=== PATIENT | female | born 1975 | race Caucasian/White ===

== ENCOUNTER 2016-08-10 04:01 | Emergency (ER) | payer BC, OTHER ==
--- NOTE | 2016-08-10 05:45 | DIAGNOSTIC IMAGING REPORT ---
PROCEDURE: XR CHEST 2 VIEW INDICATION: COUGH TECHNIQUE: PA and lateral views. COMPARISON: None. FINDINGS: Lungs are clear. Heart and mediastinum are normal. Thorax is normal. IMPRESSION: 1. Negative chest.
--- NOTE | 2016-08-10 07:35 | ED NURSING NOTES ---
Clinical Report - Nurses [facility] [address] [place] [address] 08/10/2016 4:07 Patient: CAMILA PAINTING TRIAGE 04:21 08/10/16. BP: 123/77. HR: 101. RR: 20. O2 saturation: 97% on room air. Temp: 99.6 F (oral). Pain level now: 04/05. --04:24 McQuoid, Marcella, ER Tech1 Triage time 04:Aug 10 2016. Acuity: LEVEL 3. Chief Complaint: COUGH, SORE THROAT and BODY ACHES. SEPSIS SCREEN: Sepsis Screen: negative. Negative (no infection suspected/documented). CARMEN COMA SCORE: Carmen Coma Scale: 15- eyes open spontaneously (4); best verbal response- oriented x 4 (5); best motor response- obeys commands (6). --04:31 Sheila Farmer 04:27 08/10/16. BP: 120/70. HR: 96. RR: 20. O2 saturation: 98% on room air. --04:31 Sheila Farmer. Weight: 72.5 kg stated. Height/Length: 63 inches Per Patient. BMI: 28.3. --04:21 McQuoid, Marcella, ER Tech1. Medications Albuterol Sulfate HFA Inhalation. Omeprazole Oral. Qvar Inhalation. Singulair Oral. --04:23 McQudariela Marcella, ER Tech1. Medication/allergy information source: the patient. --04:31 Sheila Farmer. Allergies Aspirin. Ibuprofen. Penicillin. Sulfa Antibiotics. --04:23 McQuoid Marcella, ER Tech1. History Arrived by private vehicle. Historian: patient. Unaccompanied. Primary physician (celeste). ( Patient reports that she has been sick for one week with scratchy throat and cough. She reports that she began having body aches, chills and headache since earlier tonight. She reports that her co-worker has a child who was recently diagnosed with meningitis and she was concerned for exposure.). PAST MEDICAL HX: Immunizations: up-to-date. Last normal menstrual period- 3 weeks ago. SOCIAL HX: Former smoker, end date 2006. Regular alcohol use. No drug use. No recent travel. She has had contact with a sick coworker. No infectious disease exposure. ABUSE ASSESSMENT: No report of abuse. FALL RISK ASSESSMENT: Fall risk assessment completed. No fall risk identified. NUTRITIONAL RISK ASSESSMENT: The nutritional risk assessment revealed no deficiencies. FUNCTIONAL ASSESSMENT: Functional assessment: no impairments noted. LEARNING NEEDS ASSESSMENT: The learning needs assessment revealed no barriers. SKIN INTEGRITY ASSESSMENT: Skin integrity risk assessment completed. No skin integrity risk identified. --04:31 Sheila Farmer. Interventions ID band on patient. To treatment room. --04:31 Sheila Farmer. PHYSICAL ASSESSMENT 04:32 08/10/16. Ambulatory to room. Patient gowned. GENERAL / NEURO / PSYCH: Alert. Oriented X 4. HEENT: Mucous membranes are pink. RESPIRATORY: Respirations not labored. Cough productive of scant amounts of green sputum. CVS: Cardiac rhythm: sinus tachycardia; (102). SKIN: Skin is warm and dry. --04:32 Sheila Farmer. NURSING PROGRESS NOTES Patient c/o sore throat and body aches x 1 week. Productive cough started yesterday. --04:24 McQuoid, Marcella, ER Tech1 Patient masked. --04:27 McQuoid, Marcella, ER Tech1 Patient gowned. Warming measures: blanket applied. Reassurance given to the patient. Two patient identifiers checked. Call light placed in reach. Side rails up x 1. Bed placed in lowest position. Brakes of bed on. Patient ready for evaluation- chart flagged and ED physician notified. --04:33 Sheila Farmer Pulse oximeter and NIBP monitor placed on patient; monitor alarms on. --04:33 Sheila Farmer Patient ID band checked for patient name and birthdate: patient confirmed. Blood samples drawn from the right hand peripheral IV site by nurse ; labeled in presence of the patient and sent to lab: [facility]onsivais. --05:18 Sheila Farmer 05:18 08/10/16. BP: 118/60. HR: 105. RR: 20. O2 saturation: 98%. --05:20 Sheila Farmer ( Patient refusing rapid influenza swab). --05:24 Sheila Farmer 06:16 08/10/16. BP: 110/65. HR: 89. RR: 18. O2 saturation: 100% on room air. Temp: 99 F (oral). Pain level now: 07/03. --06:16 Sheila aFrmer. DISPOSITION / DISCHARGE 07:40. --07:52 Radha Brink R.N. 07:50 08/10/16. BP: 122/77. HR: 90. RR: 16. O2 saturation: 98%. Fleming-Mcguire pain scale: 04/05. --07:52 Radha Brink R.N. 07:50. Condition at departure: stable. No learning barriers present. Discharge instructions provided and reviewed with the patient. Reviewed medication(s) side effects, precautions, dosing and course information. Prescription(s) given to the patient. Reviewed referral to family practice for followup. Patient verbalized understanding. Written instructions provided in Slovak. The patient was discharged home and unaccompanied at time of discharge. She left the Emergency Department ambulatory. Medication list reviewed and validated. --07:54 Radha Brink R.N. Departure time: 0750. --07:54 Radha Brink R.N. Locked/Released at 08/10/2016 7:54 by Radha Brink R.N.
--- NOTE | 2016-08-10 07:35 | ED ORDER SUMMARY ---
..... Patient: CAMILA PAINTING OrderSheet [facility] VisitID: [id number] [place] [address] 41y, F Registration Date/Time: 08/10/2016 ORDER SHEET Weight: 72.5 kg (stated) Allergies: Aspirin, Ibuprofen, Penicillin, Sulfa Antibiotics GENERAL ORDERS: Rapid Influenza Screen (Nasal Pharyngeal) (swab) Urgent (04:53 08/10/2016 Wilberto BOYD) (Ack 4:56 Perla) (Cancelled: Patient Refusal6:17 HSoule) Chest 2V Urgent (04:54 08/10/2016 Wilberto BOYD) (Ack 4:56 Perla) (5:02 GUnpriscilla) CBC w Diff Urgent (04:54 08/10/2016 Wilberto BOYD) (Ack 4:56 RKmitch) (5:48 HSoule) Culture, Strep Screen Urgent (04:54 08/10/2016 Wilberot BOYD) (Ack 4:56 Perla) (5:48 HSoule) MEDICATION ORDERS: IV FLUIDS: ORDER SHEET NOTES: [Electronically signed by Radha Brink R.N. (07:54 08/10/2016)] [Electronically signed by Vijay Morrell MD (07:50 08/11/2016)] [Electronically locked/signed by Radha Brink R.N. (07:54 08/10/2016)]
--- NOTE | 2016-08-10 07:35 | ED ORDER SUMMARY ---
..... Patient: CAMILA PAINTING OrderSheet [facility] VisitID: [id number] [place] [address] 41y, F Registration Date/Time: 08/10/2016 ORDER SHEET Weight: 72.5 kg (stated) Allergies: Aspirin, Ibuprofen, Penicillin, Sulfa Antibiotics GENERAL ORDERS: Rapid Influenza Screen (Nasal Pharyngeal) (swab) Urgent (04:53 08/10/2016 Wilberto BOYD) (Ack 4:56 Perla) (Cancelled: Patient Refusal6:17 HSoule) Chest 2V Urgent (04:54 08/10/2016 Wilberto BOYD) (Ack 4:56 Perla) (5:02 GUnpriscilla) CBC w Diff Urgent (04:54 08/10/2016 Wilberto BOYD) (Ack 4:56 RKmitch) (5:48 HSoule) Culture, Strep Screen Urgent (04:54 08/10/2016 Wilberto BOYD) (Ack 4:56 Perla) (5:48 HSoule) MEDICATION ORDERS: IV FLUIDS: ORDER SHEET NOTES: [Electronically signed by Radha Brink R.N. (07:54 08/10/2016)] [Electronically signed by Vijay Morrell MD (07:50 08/11/2016)] [Electronically locked/signed by Radha Brink R.N. (07:54 08/10/2016)]
--- NOTE | 2016-08-10 07:35 | ED CLINICAL REPORT ---
Clinical Report - Physicians/Mid Levels [facility] [address] [place] [address] 08/10/2016 4:07 Patient: CAMILA PAINTING Time Seen: 04:47 Shayne 2016. Arrived- By private vehicle. Historian- patient. CPT: ER phys charges level 3 (#[id number]). HISTORY OF PRESENT ILLNESS Chief Complaint: COUGH and SORE THROAT. 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 She reports that she began having body aches, chills and headache since earlier tonight. She reports that her co-worker has a child who was recently diagnosed with meningitis and she was concerned for exposure.). and is still present. The illness is described as moderate. The patient has had a cough, a sore throat, hoarseness and muscle aches. She has had moderate amounts of green sputum. There has been a change from baseline. No fever, chills, nasal congestion or sinus pressure. Additional history - The patient has had contact with a sick individual. Similar symptoms previously: None. Recent medical care: Not recently seen/assessed. REVIEW OF SYSTEMS The patient has had a headache. No eye discomfort, nausea, vomiting, diarrhea or abdominal pain. No pedal edema, calf pain, difficulty with urination, skin rash or enlarged lymph nodes. Denies current . All systems otherwise negative, except as recorded above. PAST HISTORY Pneumonia. Medications: Albuterol Sulfate HFA Inhalation. Omeprazole Oral. Qvar Inhalation. Singulair Oral. Allergies: Aspirin. Ibuprofen. Penicillin. Sulfa Antibiotics. SOCIAL HISTORY Former smoker. Regular alcohol use. No drug use. ADDITIONAL NOTES The nursing notes have been reviewed. PHYSICAL EXAM Vital Signs: 08/10/2016 04:21 BP: 123/77. HR: 101. RR: 20. O2 saturation: 97%. Temp: 99.6 F. Pain level now: 2/10. Appearance: Alert. No acute distress. Eyes: Eyes normal inspection. ENT: Ears normal. Nose normal. Pharynx normal. Uvula midline. Neck: Normal inspection. Neck supple. No meningeal signs or lymphadenopathy. CVS: Normal heart rate and rhythm. Heart sounds normal. Pulses normal. Respiratory: No respiratory distress. Breath sounds normal. Abdomen: Soft and nontender. Back: Normal inspection. Skin: Skin warm. Normal skin color. No rash. Extremities: Extremities exhibit normal ROM. No lower extremity edema. Neuro: Oriented X 3. No motor deficit. No sensory deficit. LABS, X-RAYS, AND EKG Chest X-ray: Normal Chest X-Ray. Laboratory Tests: CBC w Diff: (LUCIO: 08/10/2016 05:15) ( [facility] 08/10/2016 05:57) Final results Test Result Flag Units (Reference) WHITE BLOOD COUNT 9.6 K/uL (4.5-11.5) RED BLOOD COUNT 4.83 M/uL (4.00-5.20) HEMOGLOBIN 13.6 gm/dL (12.0-16.0) HEMATOCRIT 41.0 % (36.0-46.0) MEAN CELL VOLUME 85 fL (80-100) MEAN CORPUSCULAR HGB 28 pg (26-34) MEAN CORPUSCULAR HGB CONC 33 g/dL (31-37) RED CELL DISTRIBUTION WIDTH 14.9 H % (11.6-14.8) PLATELET COUNT 220 K/uL (150-400) POLY % 84 H % (50-75) BAND % 0 % (0-8) LYMPH 12 L % (25-40) MONO 4 % (3-14) EOSINOPHIL % 0 % (0-4) BASOPHIL % 0 % (0-2) METAMYELOCYTE % 0 % (0-1) MYELOCYTE 0 % (0-1) OTHER CELL TYPE 0 Culture, Strep Screen: (LUCIO: 08/10/2016 05:15) ( [facility] 08/10/2016 05:35) Final results Test Result Flag Units (Reference) RAPID STREP SCREEN - THROAT DATE: 08/10/16 NEGATIVE SCREEN: RAPID STREP SCREEN NEGATIVE; CONFIRMATION TO FOLLOW . PROGRESS AND PROCEDURES Patient/family counseled. Disposition: Discharged. Condition: stable. CLINICAL IMPRESSION Acute mucopurulent bronchitis. INSTRUCTIONS No strenuous activity. Rest. Do not work for two days until better. Drink plenty of fluids. Warnings: Further evaluation is necessary. GENERAL WARNINGS: Return or contact your physician immediately if your condition worsens or changes unexpectedly, if not improving as expected, or if other problems arise. Your Current Medications: CONTINUE TAKING THE FOLLOWING MEDICATIONS: Albuterol Sulfate HFA Inhalation. Omeprazole Oral. Qvar Inhalation. Singulair Oral. Prescription Medications: Hydrocodone/APAP 5mg/325mg: take 1 to 2 orally every 6 hours as needed for pain. Dispense fifteen (15). No refills. Zithromax 250 mg tablets: take 2 orally today, followed by 1 daily for the next 4 days. No refills. Substitution is permissible. Follow-up: Follow up with your doctor in one week. Call for an appointment. Understanding of the discharge instructions verbalized by patient. (Electronically signed by Vijay Morrell MD 08/11/2016 7:50)
--- NOTE | 2016-08-10 07:35 | ED CLINICAL REPORT ---
Clinical Report - Physicians/Mid Levels [facility] [address] [place] [address] 08/10/2016 4:07 Patient: CAMILA PAINTING Time Seen: 04:47 Shayne 2016. Arrived- By private vehicle. Historian- patient. CPT: ER phys charges level 3 (#[id number]). HISTORY OF PRESENT ILLNESS Chief Complaint: COUGH and SORE THROAT. 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 She reports that she began having body aches, chills and headache since earlier tonight. She reports that her co-worker has a child who was recently diagnosed with meningitis and she was concerned for exposure.). and is still present. The illness is described as moderate. The patient has had a cough, a sore throat, hoarseness and muscle aches. She has had moderate amounts of green sputum. There has been a change from baseline. No fever, chills, nasal congestion or sinus pressure. Additional history - The patient has had contact with a sick individual. Similar symptoms previously: None. Recent medical care: Not recently seen/assessed. REVIEW OF SYSTEMS The patient has had a headache. No eye discomfort, nausea, vomiting, diarrhea or abdominal pain. No pedal edema, calf pain, difficulty with urination, skin rash or enlarged lymph nodes. Denies current . All systems otherwise negative, except as recorded above. PAST HISTORY Pneumonia. Medications: Albuterol Sulfate HFA Inhalation. Omeprazole Oral. Qvar Inhalation. Singulair Oral. Allergies: Aspirin. Ibuprofen. Penicillin. Sulfa Antibiotics. SOCIAL HISTORY Former smoker. Regular alcohol use. No drug use. ADDITIONAL NOTES The nursing notes have been reviewed. PHYSICAL EXAM Vital Signs: 08/10/2016 04:21 BP: 123/77. HR: 101. RR: 20. O2 saturation: 97%. Temp: 99.6 F. Pain level now: 2/10. Appearance: Alert. No acute distress. Eyes: Eyes normal inspection. ENT: Ears normal. Nose normal. Pharynx normal. Uvula midline. Neck: Normal inspection. Neck supple. No meningeal signs or lymphadenopathy. CVS: Normal heart rate and rhythm. Heart sounds normal. Pulses normal. Respiratory: No respiratory distress. Breath sounds normal. Abdomen: Soft and nontender. Back: Normal inspection. Skin: Skin warm. Normal skin color. No rash. Extremities: Extremities exhibit normal ROM. No lower extremity edema. Neuro: Oriented X 3. No motor deficit. No sensory deficit. LABS, X-RAYS, AND EKG Chest X-ray: Normal Chest X-Ray. Laboratory Tests: CBC w Diff: (LUCIO: 08/10/2016 05:15) ( [facility] 08/10/2016 05:57) Final results Test Result Flag Units (Reference) WHITE BLOOD COUNT 9.6 K/uL (4.5-11.5) RED BLOOD COUNT 4.83 M/uL (4.00-5.20) HEMOGLOBIN 13.6 gm/dL (12.0-16.0) HEMATOCRIT 41.0 % (36.0-46.0) MEAN CELL VOLUME 85 fL (80-100) MEAN CORPUSCULAR HGB 28 pg (26-34) MEAN CORPUSCULAR HGB CONC 33 g/dL (31-37) RED CELL DISTRIBUTION WIDTH 14.9 H % (11.6-14.8) PLATELET COUNT 220 K/uL (150-400) POLY % 84 H % (50-75) BAND % 0 % (0-8) LYMPH 12 L % (25-40) MONO 4 % (3-14) EOSINOPHIL % 0 % (0-4) BASOPHIL % 0 % (0-2) METAMYELOCYTE % 0 % (0-1) MYELOCYTE 0 % (0-1) OTHER CELL TYPE 0 Culture, Strep Screen: (LUCIO: 08/10/2016 05:15) ( [facility] 08/10/2016 05:35) Final results Test Result Flag Units (Reference) RAPID STREP SCREEN - THROAT DATE: 08/10/16 NEGATIVE SCREEN: RAPID STREP SCREEN NEGATIVE; CONFIRMATION TO FOLLOW . PROGRESS AND PROCEDURES Patient/family counseled. Disposition: Discharged. Condition: stable. CLINICAL IMPRESSION Acute mucopurulent bronchitis. INSTRUCTIONS No strenuous activity. Rest. Do not work for two days until better. Drink plenty of fluids. Warnings: Further evaluation is necessary. GENERAL WARNINGS: Return or contact your physician immediately if your condition worsens or changes unexpectedly, if not improving as expected, or if other problems arise. Your Current Medications: CONTINUE TAKING THE FOLLOWING MEDICATIONS: Albuterol Sulfate HFA Inhalation. Omeprazole Oral. Qvar Inhalation. Singulair Oral. Prescription Medications: Hydrocodone/APAP 5mg/325mg: take 1 to 2 orally every 6 hours as needed for pain. Dispense fifteen (15). No refills. Zithromax 250 mg tablets: take 2 orally today, followed by 1 daily for the next 4 days. No refills. Substitution is permissible. Follow-up: Follow up with your doctor in one week. Call for an appointment. Understanding of the discharge instructions verbalized by patient. (Electronically signed by Vijay Morrell MD 08/11/2016 7:50)
--- NOTE | 2016-08-11 07:50 | ED MED RECONCILIATION SUMMARY ---
Patient: CAMILA PAINTING Medication Reconciliation Report [facility] VisitID: [id number] [place] [address] 41y, F Registration Date/Time: 08/10/2016 Weight: 72.5 kg Height/Length: 63 in. BMI: 28.3 ALLERGIES: Aspirin, Ibuprofen, Penicillin, Sulfa Antibiotics The patient's Home Medications are listed below: CONTINUE TAKING THE FOLLOWING MEDICATIONS: Albuterol Sulfate HFA Inhalation Omeprazole Oral Qvar Inhalation Singulair Oral The source(s) of the original Home Medication information: patient The following Medications were given to the patient in the Emergency Department: None. The following Medications were prescribed to the patient: Hydrocodone/APAP 5mg/325mg: take 1 to 2 orally every 6 hours as needed for pain. Dispense fifteen (15). No refills. -- Vijay Morrell MD Zithromax 250 mg tablets: take 2 orally today, followed by 1 daily for the next 4 days. No refills. Substitution is permissible. -- Vijay Morrell MD
--- NOTE | 2016-08-11 07:50 | ED MAR SUMMARY ---
..... Medication Administration Record [facility] [address] [place], [place] [id number] Patient: CAMILA PAINTING Visit ID: [id number] 41y, F Weight: 72.5 kg Height/Length: 63 in BMI: 28.3 ALLERGIES: Ibuprofen, Aspirin, Penicillin, Sulfa Antibiotics
--- NOTE | 2016-08-11 07:50 | ED MED RECONCILIATION SUMMARY ---
Patient: CAMILA PAINTING Medication Reconciliation Report [facility] VisitID: [id number] [place] [address] 41y, F Registration Date/Time: 08/10/2016 Weight: 72.5 kg Height/Length: 63 in. BMI: 28.3 ALLERGIES: Aspirin, Ibuprofen, Penicillin, Sulfa Antibiotics The patient's Home Medications are listed below: CONTINUE TAKING THE FOLLOWING MEDICATIONS: Albuterol Sulfate HFA Inhalation Omeprazole Oral Qvar Inhalation Singulair Oral The source(s) of the original Home Medication information: patient The following Medications were given to the patient in the Emergency Department: None. The following Medications were prescribed to the patient: Hydrocodone/APAP 5mg/325mg: take 1 to 2 orally every 6 hours as needed for pain. Dispense fifteen (15). No refills. -- Vijay Morrell MD Zithromax 250 mg tablets: take 2 orally today, followed by 1 daily for the next 4 days. No refills. Substitution is permissible. -- Vijay Morrell MD
--- NOTE | 2016-08-11 07:50 | ED DISCHARGE INSTRUCTIONS ---
Patient: CAMILA PAINTING General Instructions [facility] VisitID: [id number] [place] [address] 41y, F Registration Date/Time: 08/10/2016 INSTRUCTIONS No strenuous activity. Rest. Do not work for two days until better. Drink plenty of fluids. Warnings: Further evaluation is necessary. GENERAL WARNINGS: Return or contact your physician immediately if your condition worsens or changes unexpectedly, if not improving as expected, or if other problems arise. Your Current Medications: CONTINUE TAKING THE FOLLOWING MEDICATIONS: Albuterol Sulfate HFA Inhalation. Omeprazole Oral. Qvar Inhalation. Singulair Oral. Prescription Medications: Hydrocodone/APAP 5mg/325mg: take 1 to 2 orally every 6 hours as needed for pain. Dispense fifteen (15). No refills. Zithromax 250 mg tablets: take 2 orally today, followed by 1 daily for the next 4 days. No refills. Substitution is permissible. Follow-up: Follow up with your doctor in one week. Call for an appointment. Understanding of the discharge instructions verbalized by patient. ADDITIONAL INFORMATION Bronchitis (Adult: Abx Tx) BRONCHITIS is an infection of the air passages (bronchial tubes). It often occurs during the common cold. Symptoms include cough with mucus (phlegm) and low-grade fever. Bronchitis usually lasts 7-14 days. Mild cases can be treated with simple home remedies. More severe infection is treated with an antibiotic. Home Care: If symptoms are severe, rest at home for the first 2-3 days. When you resume activity, don't let yourself get too tired. Do not smoke. Avoid being exposed to the smoke of others. You may use acetaminophen (Tylenol) or ibuprofen (Motrin, Advil) to control fever or pain, unless another medicine was prescribed for this. [NOTE: If you have chronic liver or kidney disease or ever had a stomach ulcer or GI bleeding, talk with your doctor before using these medicines.] Your appetite may be poor, so a light diet is fine. Avoid dehydration by drinking 6-8 glasses of fluids per day (water, soft, drinks, juices, tea, soup, etc.). Extra fluids will help loosen secretions in the lungs. Etxk-fen-zxsdswc cough medicines that containdextromethorphan(such as Robitussin DM) and decongestants (Actifed or Sudafed) may help relieve cough and congestion. [NOTE: Do not use decongestants if you have high blood pressure.] Finish all antibiotic medicine, even if you are feeling better after only a few days. Follow Up with your doctor or as directed if you dont start to feel better after three days. [NOTE: If you are age 65 or older, or if you have chronic asthma or COPD, we recommend a PNEUMOCOCCAL VACCINATION every five years and a yearly INFLUENZAVACCINATION (FLU-SHOT) every . Ask your doctor about this. If you had an X-ray, a radiologist will review it. You will be notified of any new findings that may affect your care.] Get Prompt Medical Attention if any of the following occur: Fever over 100.4F (38.0C) for more than three days Trouble breathing, wheezing or pain with breathing Coughing up blood or increased amounts of colored sputum Weakness, drowsiness, headache, facial pain, ear pain or a stiff neck You have been given the following additional information: Bronchitis, Antiobiotic Treatment (Adult) No strenuous activity. Rest. Do not work for two days until better. (Electronically signed by Vijay Morrell MD 08/11/2016 7:50)
--- NOTE | 2016-08-11 07:50 | ED MAR SUMMARY ---
..... Medication Administration Record [facility] [address] [place] [place], [place] [id number] Patient: CAMILA PAINTING Visit ID: [id number] 41y, F Weight: 72.5 kg Height/Length: 63 in BMI: 28.3 ALLERGIES: Ibuprofen, Aspirin, Penicillin, Sulfa Antibiotics
== END 2016-08-10 07:50 | disposition home or self-care (01) ==
LOC: ED SRH 04:01
DX: J20.9 Acute bronchitis, unspecified (principal); Z79.51 Long term (current) use of inhaled steroids; Z79.52 Long term (current) use of systemic steroids; Z79.899 Other long term (current) drug therapy; Z88.0 Allergy status to penicillin; Z88.6 Allergy status to analgesic agent; Z88.2 Allergy status to sulfonamides
CPT/HCPCS: 90154; 90159; 90627; 91643; 95059